=== PATIENT | female | born 2000 | race Asian ===

== ENCOUNTER 2021-09-15 09:29 | Outpatient (REF) | payer OTHER, SELFPAY | END 2021-09-15 09:30 | disposition home or self-care (01) | LOC: HO.HMGCLDS 09:29 | PROVIDERS: Visit Provider Internal Medicine | DX: Z20.822 Contact with and (suspected) exposure to COVID-19 (principal) | CPT/HCPCS: C9803; U0003; U0005 ==

== ENCOUNTER → 2022-02-02 16:05 | Outpatient (REF) | payer OTHER, SELFPAY ==
--- NOTE | 2022-02-02 16:10 | CA_ITS ---
Transthoracic Echocardiogram Patient (Last, First, Middle): Ciera Caceres J Gender: Female Date of : 2000 Age: 21 Procedure Date: 02/02/2022 Procedure Type: Transthoracic Echocardiogram Location: [place] Height: 167.64 cm Weight: 52.16 kg BSA: 1.58 m2 Heart Rate: bpm BP: 115 / 60 mmHg [place] Operator: CP/TO Referring MD: Karyn Arnold MD Symptoms: SYNCOP COLLAPSE R55 CARDIAC MURMUR Study Quality: Fair ECG Rhythm: Sinus Conclusions: - The left ventricular systolic function is normal. The calculated ejection fraction is 69% by biplane method. - No obvious valvular pathology seen on this study. Findings Left Ventricle Normal left ventricular cavity size. There is normal left ventricular wall thickness. The left ventricular systolic function is normal. The calculated ejection fraction is 69% by biplane method. There is no evidence of regional wall motion abnormalities. Diastolic function is normal for age. Right Ventricle Normal right ventricular cavity size and systolic function. Atria Both atria are normal in size. Aortic Valve There is a normal trileaflet aortic valve. There is no aortic valve stenosis. There is no aortic valve regurgitation. Mitral Valve The mitral valve appears normal. There is trace mitral valve regurgitation. There is no mitral valve stenosis. Pulmonic Valve The pulmonic valve is likely normal. Tricuspid Valve Normal tricuspid valve structure. There is trace tricuspid valve regurgitation. The pulmonary artery systolic pressure is normal. Great Vessels The asc aorta and aortic arch are normal in size. Venous The inferior vena cava is normal in size and collapses greater than 50% with inspiration. Pericardium/Pleural There is no evidence of pericardial effusion. Prior Study Comparison No prior study available for comparison. Recommendations, Care & Conclusions No obvious valvular pathology seen on this study. Measurements 2D Linear Measurements IVSd: 0.70 0.6-0.9/0.6-1.0 cm LVIDd: 4.01 3.9-5.3/4.2-5.9 cm LVIDd Index: 2.54 2.4-3.2/2.2-3.1 cm/m2 LVIDs: 2.47 2.0-3.6 cm LVPWd: 0.77 0.7-1.1 cm LA Diam: 2.40 2.7-3.8/3.0-4.0 cm LAIDs Index: 1.52 1.5-2.3 cm/m2 LV Mass: 104.09 67-162/88-224 g LV Mass Index: 65.88 43-95/49-115 g/m2 LVOT Diam: 1.90 3.0+(-)1.3 cm 2D Systolic Function EF 4C: 65.70 >55% EF 2C: 71.90 >55% EF BiP: 69.00 >55% Mitral Valve MV Pk E: 0.78 MV PK A: 0.55 MV Decel Time: 174.00 E/A: 1.40 E'Lateral: 13.50 E'Medial: 9.46 E/E' Med: 8.20 E/E' Lat: 5.80 PHT: 51.00 MVA PHT: 4.31 Decel Bullitt: 4.47 Aortic Valve AoV Pk Aram: 1.38 AoV Mn Aram: 0.88 AoV VTI: 0.27 AoV Pk Grad: 8.00 Aov Mn Grad: 4.00 REYNA Cont.VTI: 2.51 LVOT LVOT Pk Aram: 1.14 LVOT Mn Aram: 0.85 LVOT VTI: 0.24 LVOT Pk Grad: 5.00 LVOT Mn Grad: 3.00 LVOT Diam: 1.90 LVOT Area: 2.84 Diastolic Function MV Pk E: 0.78 MV Pk A: 0.55 E/A: 1.40 E'Medial: 9.46 E/E' Med: 8.20 E' Laterial: 13.50 E/E' Lat: 5.80 Right Ventricle TAPSE (mm): 19.70 TVS' Aram: 11.70 Tricuspid Valve TR Pk Aram: 1.97 TR Pk Grad: 16.00 RA Press: 3.00 RVSP: 19.00 Great Vessels Aorta Sinus of Valsalva: 2.50 2.0-3.[address] Ridge: 2.06 1.7-3.4 cm Ao Asc: 2.50 2.1-3.4 cm Ao Arch: 2.20 Updated in Other Vendor System with Status of Final Josue Florez MD electronically signed on 02/04/2022 1:01:15 PM with status of Final
== END ==
LOC: HO.CARD 16:05
PROVIDERS: Visit Provider Family Medicine
DX: R55 Syncope and collapse (principal); R01.1 Cardiac murmur, unspecified
CPT/HCPCS: 93306